=== PATIENT | female | born 1945 | race Caucasian/White ===

== ENCOUNTER → 2016-08-21 | Day surgery (SDC) | payer MEDICARE, OTHER | END | disposition home or self-care (01) | LOC: SDCH 10:53 | DX: S52.502A Unspecified fracture of the lower end of left radius, initial encounter for closed fracture (principal); R73.03 Prediabetes; E11.9 Type 2 diabetes mellitus without complications; Z86.73 Personal history of transient ischemic attack (TIA), and cerebral infarction without residual deficits; Z79.82 Long term (current) use of aspirin; Z79.02 Long term (current) use of antithrombotics/antiplatelets; Z79.899 Other long term (current) drug therapy; Z90.710 Acquired absence of both cervix and uterus; Z90.89 Acquired absence of other organs; W19.XXXA Unspecified fall, initial encounter | CPT/HCPCS: J2704; J2765 ==